=== PATIENT | female | born 1985 | race Caucasian/White ===

== ENCOUNTER 2019-07-14 11:33 | Outpatient (REF) | payer MEDICAID, SELFPAY ==
--- NOTE | 2019-07-14 11:30 | PAPFT_PTH ---
PATIENT: Morena Solorzano LOC: [facility] U#:[id number] AGE/SX: 34/F ROOM: RE07/14/[address]: Camille Collins APRN : 1985 BED: DIS: 07/14/2019 SPEC #: [id number] RECD: 07/15/19 12:40 STATUS: MAXINE REArabella #: [id number] ALTAF: 07/14/19 11:[address]: Camille Collins DEPT: [facility] Cytology RECD BY: Yolanda Brown Tissues: 1 - CX/ENDOCX FOR PAP SMEARS Procedures: PAP THIN PREP/[facility] Screening HPV DNA PROBE Comments: [id number]
== END 2019-07-14 11:53 ==
LOC: LBN 11:33
PROVIDERS: PCP Nurse Practitioner; Visit Provider Nurse Practitioner
DX: Z12.4 Encounter for screening for malignant neoplasm of cervix (principal); Z11.51 Encounter for screening for human papillomavirus (HPV)
CPT/HCPCS: 88142; 87624

== ENCOUNTER 2019-09-27 14:08 | Outpatient (REF) | payer MEDICAID, SELFPAY ==
[2019-09-27 19:05] LABS: HGB 14.1 g/dL (12.0-15.5); Mean Corp. HGB Concentration 32.8 g/dL (32.0-36.0); Mean Corpuscular Hemoglobin 32.6 pg (27.0-33.0); Mean Corpuscular Volume 99.3 fL (80-95); Mean Platelet Volume 9.8 fL (8.0-11.0); Platelet Count 343 x1000/uL (130-400); RBC 4.33 m/cumm (4.00-5.20); RBC Distribution Width 13.8 % (11.7-14.6); White Blood Cell Count 12.75 k/cumm (4.4-10.8)
[2019-09-27 19:45] LABS: ALT 16 U/L (14-59); AST 15 U/L (15-37); Albumin 3.8 g/dL (3.4-5.0); Alkaline Phosphatase 115 U/L (46-116); Anion Gap 8.3 mmol/L (3-11); BUN 5 mg/dL (7-18); Bilirubin, Total 0.4 mg/dL (0.2-1.0); CO2 30.7 mmol/L (21.0-32.0); CREATININE 0.75 mg/dL (0.55-1.02); Calcium 8.9 mg/dL (8.5-10.1); Chloride 100 mmol/L (98-107); Ferritin 57 ng/mL (8-252); Glucose 82 mg/dL (74-106); Potassium 4.1 mmol/L (3.5-5.1); Sodium 139 mmol/L (136-145); TSH (W/Ref FT4) 1.28 uIU/mL (0.36-3.74); Total Protein 7.2 g/dL (6.4-8.2); Vitamin B12 402 pg/mL (193-986)
== END 2019-09-27 14:28 ==
LOC: LBN 14:08
PROVIDERS: PCP Nurse Practitioner; Visit Provider Nurse Practitioner
DX: I10 Essential (primary) hypertension (principal); R53.83 Other fatigue; F32.9 Major depressive disorder, single episode, unspecified
CPT/HCPCS: 80053; 85027; 82607; 82728; 84443

== ENCOUNTER 2020-01-21 12:45 | Outpatient (REF) | payer MEDICAID, SELFPAY ==
[2020-01-21 14:25] LABS: HCG Quant, Pregnancy < 1 mIU/mL (1-3)
== END 2020-01-21 13:05 ==
LOC: LBN 12:45
PROVIDERS: PCP Nurse Practitioner; Visit Provider Obstetrics & Gynecology Gynecology
DX: R10.9 Unspecified abdominal pain (principal); F41.8 Other specified anxiety disorders; Z32.02 Encounter for pregnancy test, result negative
CPT/HCPCS: 84702